=== PATIENT | male | born 1995 | race Caucasian/White ===

== ENCOUNTER 2019-05-27 22:22 | Emergency (ER) | payer SELFPAY ==
[~2019-05-27] VITALS: Ht 172.7 cm; Wt 65.9 kg
[2019-05-27 22:44] VITALS: BP 129/68
== END 2019-05-27 23:34 | disposition left against medical advice (07) ==
LOC: EMS 22:26
DX: F41.9 Anxiety disorder, unspecified (principal); Z53.21 Procedure and treatment not carried out due to patient leaving prior to being seen by health care provider